=== PATIENT | female | born 1990 | race Hispanic/Latino ===

== ENCOUNTER 2017-08-25 18:38 | Emergency (ER) | payer MEDICAID ==
--- NOTE | 2017-08-25 19:28 | Emergency Department Report ---
Abscess Boil HPI - HPI Chief Complaint: Skin/Abscess/Foreign Body Stated Complaint: boil Time Seen by Provider: 08/25/17 19:24 Duration: 2 Days Location: Other (right buttock multiple bumps) Severity: Mild History: Yes Pain, Yes Purulent Drainage, Yes Previous History, Yes Insect Bite (possible insect bite), No Fever, No Numbness, No Foreign Body HPI: This is a 27-year-old female that presents with a boil to right buttock. History of hypertension but currently noncompliant with metoprolol. Patient reports seeing a blister 1 week ago to her right thigh marian she thought was a spider bite. She has been applying Neosporin to the area which improved blister. 2 days ago she noticed multiple blisters to her right buttock's and concern included potentially be something other than a spider bite. One of the blisters erupted and drained purulent discharge. She has been clean and wound with soap and water and apply Neosporin and a Band-Aid area. That area started to have redness and very tender to touch. She is having difficulty sitting in the area. She denies numbness or tingling, chest pain, shortness of breath, difficulty swallowing, nausea or vomiting, and fever. Home Medications: Previous Rx's Medication Instructions Recorded Last Taken Type Ibuprofen [Motrin 600 MG tab] 600 mg PO Q8H PRN #15 tablet 08/25/17 Unknown Rx Sulfamethoxazole/Trimethoprim 1 each PO BID 10 Days #20 tablet 08/25/17 Unknown Rx [Bactrim DS TAB] Allergies/Adverse Reactions: Allergies Allergy/AdvReac Type Severity Reaction Status Date / Time No Known Allergies Allergy Unverified 08/25/17 18:56 ED Review of Systems ROS: Stated complaint: boil Other details as noted in HPI Constitutional: denies: chills, fever Respiratory: denies: cough, shortness of breath, wheezing Cardiovascular: denies: chest pain, palpitations Gastrointestinal: denies: abdominal pain, nausea, diarrhea Skin: lesions (multiple bumps to right buttock's). denies: rash Neurological: denies: headache, weakness, numbness, paresthesias Psychiatric: denies: anxiety, depression ED Past Medical Hx - Past Medical History Previous Medical History?: Yes Hx Hypertension: Yes - Surgical History Past Surgical History?: No - Social History Smoking Status: Never Smoker Substance Use Type: None - Medications Home Medications: Home Medications Medication Instructions Recorded Confirmed Last Taken Type Ibuprofen [Motrin 600 MG tab] 600 mg PO Q8H PRN #15 tablet 08/25/17 Unknown Rx Sulfamethoxazole/Trimethoprim 1 each PO BID 10 Days #20 tablet 08/25/17 Unknown Rx [Bactrim DS TAB] ED Abscess Boil Physical Exam - Exam General: Vital signs noted. No distress. Alert and acting appropriately. Front/Back of Body, Lg (Color): 1 - 2 cm erythematous nodule, no fluctuance, right medial femoral thigh, purulent discharge, tender to palpation, surrounding area is erythematous, and multiple 1 cm erythematous, tender nodules, no drainage Size: 2 cm Exam: Yes Tenderness, Yes Surrounding Cellulites/Erythema, Yes Normal Neurologic Exam, Yes Normal Circulation, No Fluctuance, No Lymphangitis, No Crepitation, No Heart Murmur ED Course Vital Signs 08/25/17 18:52 Temperature 98.6 F Pulse Rate 104 H Respiratory 16 Rate Blood Pressure 144/106 O2 Sat by Pulse 99 Oximetry Vital Signs 08/25/17 08/25/17 18:52 19:38 Temperature 98.6 F Pulse Rate 104 H 96 H Respiratory 16 17 Rate Blood Pressure 144/106 Blood Pressure 134/96 [Left] O2 Sat by Pulse 99 100 Oximetry Critical care attestation.: If time is entered above; I have spent that time in minutes in the direct care of this critically ill patient, excluding procedure time. ED Medical Decision Making - Medical Decision Making This is a 27 y.o. female with abscess to right buttock for 2 days. History of hypertension noncompliant with medication. Patient was examined by me. Reassessed vitals now stable. Patient is nontoxic appearing and in no acute signs of distress. Physical assessment of 2 cm erythematous nodule, no fluctuance, right medial femoral thigh, purulent discharge, tender to palpation , surrounding area is erythematous. Given bactrim DS po once in ER. No indication for I&D. Discussed plan to start bactrim DS and ibuprofen with patient. Educated patient on follow up plan. Patient agrees to ED plan of care. Discharged home and follow up with PCP in 2-3 days. ED Disposition Clinical Impression: Abscess of right thigh, Cellulitis of right thigh Disposition: TO HOME OR SELFCARE Is pt being admited?: No Does the pt Need Aspirin: No Condition: Stable Instructions: Abscess (ED), Cellulitis (ED) Additional Instructions: Complete full round of bactrim DS antibiotic as prescribed. Follow up with PCP or ER in 2-3 days. Return to ER if foul smelling discharge, swelling, or severe pain to wound. Prescriptions: Ibuprofen [Motrin 600 MG tab] 600 mg PO Q8H PRN #15 tablet PRN Reason: Pain Sulfamethoxazole/Trimethoprim [Bactrim DS TAB] 1 each PO BID 10 Days #20 tablet Referrals: [facility] [Outside] - 3-5 Days [facility] [Outside] - 3-5 Days [facility] [Outside] - 3-5 Days Time of Disposition: 19:56 Print Language: ICELANDIC
[2017-08-25] MEDS ORDERED: BACTRIM DS PO ONE (19:32)
[2017-08-25] MEDS ORDERED: LOPRESSOR PO ONE (19:32)
[2017-08-25 19:39] VITALS: BP 134/96
== END 2017-08-25 20:10 | disposition home or self-care (01) ==
LOC: ED 18:38
DX: L02.415 Cutaneous abscess of right lower limb (principal); L03.115 Cellulitis of right lower limb; I10 Essential (primary) hypertension
CPT/HCPCS: 99282